=== PATIENT | male | born 2000 | race Caucasian/White ===

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

== ENCOUNTER 2024-12-22 11:36 | Emergency (ER) | payer OTHER ==
[2024-12-22 11:54] VITALS: BP 125/73; PULSE 80; RESP 17; TEMP 98.2; BMI 29.2
[2024-12-22 16:00] LABS: HIV INTERPRETATION NEGATIVE (NEGATIVE)
== END 2024-12-22 14:03 | disposition home or self-care (01) ==
LOC: FER 11:36
DX: N45.1 Epididymitis (principal); N50.812 Left testicular pain
CPT/HCPCS: 36415; 76870-TC; 81003; 86803; 87077; 87086; 87389; 87491; 87591; 87661; 99284-25